=== PATIENT | female | born 1985 | race Caucasian/White ===

== ENCOUNTER 2017-01-07 03:28 | Emergency (ER) | payer SELFPAY ==
[2017-01-07 05:10] LABS: HEMOGLOBIN 12.6 gm/dl (12.3-15.3); RED BLOOD COUNT 4.4 M/UL (4.00-5.10); WHITE BLOOD COUNT 8.9 K/UL (4.5-11.0)
[2017-01-07 05:29] LABS: BUN/CREATININE RATIO 14 (0-10)
== END 2017-01-07 09:30 | disposition home or self-care (01) ==
LOC: ER1 03:28
PROVIDERS: Specialist/Technologist Athletic Trainer
DX: R10.10 Upper abdominal pain, unspecified (principal); R79.89 Other specified abnormal findings of blood chemistry; E11.65 Type 2 diabetes mellitus with hyperglycemia; I10 Essential (primary) hypertension; F17.200 Nicotine dependence, unspecified, uncomplicated
CPT/HCPCS: 36415; 80053; 81001; 83690; 84703; 85025; 87086; 99285

== ENCOUNTER → 2017-01-18 | Outpatient (CLI) | payer SELFPAY | LOC: US 08:24 | DX: R10.11 Right upper quadrant pain (principal); K82.8 Other specified diseases of gallbladder | CPT/HCPCS: 76705 ==

== ENCOUNTER → 2017-01-28 | Outpatient (CLI) | payer SELFPAY | LOC: NM 10:09 | DX: R10.11 Right upper quadrant pain (principal) | CPT/HCPCS: 78227; A9537; J2805 ==

== ENCOUNTER → 2017-04-20 | Outpatient (CLI) | payer OTHER | LOC: US 10:29 → CT 11:00 | DX: D35.02 Benign neoplasm of left adrenal gland (principal); N92.6 Irregular menstruation, unspecified | CPT/HCPCS: 74150; 76830 ==

== ENCOUNTER 2021-02-28 02:11 | Emergency (ER) | payer BC, OTHER ==
[~2021-02-28 02:11] MED LIST: BENTYL 20MG TAB20 MG PO; ZOFRAN4 MG PO
[2021-02-28 03:38] LABS: HEMOGLOBIN 12.7 gm/dl (12.3-15.3); RED BLOOD COUNT 4.51 M/UL (4.00-5.10); WHITE BLOOD COUNT 7.7 K/UL (4.5-11.0)
[2021-02-28 03:54] LABS: BORDETELLA PARAPERTUSSIS Not Detected (Not Detectd); BORDETELLA PERTUSSIS Not Detected (Not Detectd); CHLAMYDIA PNEUMONIAE Not Detected (Not Detectd); CORONAVIRUS HKU1 Not Detected (Not Detectd); CORONAVIRUS NL63 Not Detected (Not Detectd); CORONAVIRUS OC43 Not Detected (Not Detectd); CORONOAVIRUS 229E Not Detected (Not Detectd); HUMAN METAPNEUMOVIRUS Not Detected (Not Detectd); HUMAN RHINOVIRUS/ENTEROVIRUS Not Detected (Not Detectd); INFLUENZA A Not Detected (Not Detectd); INFLUENZA B Not Detected (Not Detectd); MYCOPLASMA PNEUMONIAE Not Detected (Not Detectd); PARAINFLUENZA VIRUS 1 Not Detected (Not Detectd); PARAINFLUENZA VIRUS 2 Not Detected (Not Detectd); PARAINFLUENZA VIRUS 3 Not Detected (Not Detectd); PARAINFLUENZA VIRUS 4 Not Detected (Not Detectd); RESPIRATORY SYNCYTIAL VIRUS Not Detected (Not Detectd)
[2021-02-28 03:55] LABS: BUN/CREATININE RATIO 9 (0-10)
[2021-02-28 04:47] LABS: SARS-CoV-2 NOT DETECTED (Not Detectd)
[2021-02-28] MEDS ORDERED: OMNICEF 300 MG300 MG PO (04:59)
== END 2021-02-28 05:45 | disposition home or self-care (01) ==
LOC: ER1 02:11
PROVIDERS: Emergency Medicine
DX: N39.0 Urinary tract infection, site not specified (principal); I10 Essential (primary) hypertension; Z20.822 Contact with and (suspected) exposure to COVID-19; E11.9 Type 2 diabetes mellitus without complications; Z88.7 Allergy status to serum and vaccine
CPT/HCPCS: 71045; 80053; 81001; 84703; 85025; 87086; 87633; 99284; Q9967